=== PATIENT | male | born 1990 | race Caucasian/White ===

== ENCOUNTER 2020-04-26 23:02 | Emergency (ER) | payer OTHER, BC ==
[2020-04-26] MEDS ORDERED: KETOROLAC 30 MG/ML INJ ONE (23:55)
[2020-04-26] MEDS ORDERED: NA CHLORIDE 0.9% 1,000 ML ONE (23:55)
[2020-04-27 00:29] LABS: Hematocrit 45.9 % (39.6-49.0); MPV 8.3 fL (7.6-11.3); RBC Red Blood Cell Count 5.51 M/uL (4.33-5.43)
[2020-04-27 00:31] LABS: Protime INR 0.96
[2020-04-27 01:17] LABS: ALT/SGPT 48 U/L (12-78); AST/SGOT 21 U/L (15-37); Albumin 4.1 g/dL (3.4-5.0); Alkaline Phosphatase 88 U/L (45-117); BUN Blood Urea Nitrogen 14 mg/dL (7-18); Bicarbonate 26 mmol/L (21-32); Bilirubin Direct < 0.1 mg/dL (0-0.2); Bilirubin Total 0.3 mg/dL (0.2-1.0); Glucose Level 101 mg/dL (74-106); Magnesium 2.1 mg/dL (1.8-2.4); NT PRO-BNP 23 pg/mL (<125); Potassium 3.9 mmol/L (3.5-5.1); Sodium Level 139 mmol/L (136-145); Troponin (Emerg Dept Use Only) < 0.02 ng/mL (0.0-0.045)
[2020-04-27 01:20] LABS: Protein, Total 7.4 g/dL (6.4-8.2)
[2020-04-27 01:24] LABS: Urine Blood NEGATIVE (NEG); Urine Glucose NEGATIVE (NEG); Urine Protein NEGATIVE (NEG); Urine Specific Gravity >1.030 (1.005-1.030)
[2020-04-27] MEDS ORDERED: ALBUTEROL 2.5 MG/3 ML NEB SOL ONE (01:37)
--- NOTE | 2020-04-27 01:42 | EDPHYS ---
Physician Documentation [facility] Name: Alonso Franklin Age: 29 yrs Sex: Male : 1990 Arrival Date: 04/26/2020 Time: 23:05 Bed 8 Private MD: ED Physician Heber Mcgee HPI: 04/26 23:35 This 29 yrs old Male presents to ER via Ambulatory with complaints of cp Breathing Difficulty. 23:35 The patient has shortness of breath at rest. cp 23:35 Onset: The symptoms/episode began/occurred today. cp 23:35 Duration: The symptoms are continuous, and are unchanged since they started. The cp patient's shortness of breath is aggravated by deep breaths. Associated signs and symptoms: Pertinent positives: chest pain, Pertinent negatives: diaphoresis, dizziness, fever, hemoptysis. Historical: - Allergies: 23:19 No Known Allergies; rr5 - Home Meds: 23:19 None [Active]; rr5 - PMHx: 23:19 GERD; Diverticulitis; rr5 - PSHx: 23:19 None; rr5 - Immunization history:: Adult Immunizations up to date. - Social history:: Smoking status: unknown Patient uses alcohol, occasionally. ROS: 23:40 Constitutional: Negative for body aches, chills, fever, poor PO intake. cp 23:40 Eyes: Negative for injury, pain, redness, and discharge. cp 23:40 ENT: Negative for ear pain, sore throat, difficulty swallowing, difficulty handling secretions. 23:40 Cardiovascular: Positive for chest pain, Negative for edema, palpitations. 23:40 Respiratory: Positive for shortness of breath, at rest. Negative for wheezing. 23:40 Abdomen/GI: Negative for abdominal pain, nausea, vomiting, and diarrhea. 23:40 Back: Negative for radiated pain. 23:40 Neuro: Negative for altered mental status, dizziness, headache, syncope, weakness. 23:40 All other systems are negative. Exam: 23:22 ECG was reviewed by the Attending Physician. cp 23:45 Constitutional: The patient appears in no acute distress, alert, awake, cp non-diaphoretic, non-toxic, well developed, well nourished. 23:45 Head/Face: Normocephalic, atraumatic. cp 23:45 Eyes: Periorbital structures: appear normal, Conjunctiva: normal, no exudate, no injection, Sclera: no appreciated abnormality, Lids and lashes: appear normal, bilaterally. 23:45 ENT: External ear(s): are unremarkable, Nose: is normal, Mouth: Lips: moist, Oral mucosa: moist, Posterior pharynx: Airway: no evidence of obstruction, patent. 23:45 Chest/axilla: Inspection: normal, Palpation: is normal, no crepitus, no tenderness. 23:45 Cardiovascular: Rate: normal, Rhythm: regular, Heart sounds: murmur, not appreciated. 23:45 Respiratory: the patient does not display signs of respiratory distress, Respirations: normal, no use of accessory muscles, no retractions, labored breathing, is not present, Breath sounds: are clear throughout, no decreased breath sounds, no stridor, no wheezing. 23:45 Abdomen/GI: Inspection: abdomen appears normal, Bowel sounds: active, all quadrants, Palpation: abdomen is soft and non-tender, in all quadrants, rebound tenderness, is not appreciated, voluntary guarding, is not appreciated, involuntary guarding, is not appreciated. 23:45 Skin: no rash present. 23:45 Neuro: Orientation: to person, place \T\ time. Mentation: is normal, Motor: moves all fours, strength is normal. Vital Signs: 23:16 BP 148 / 92; Pulse 77; Resp 19; Temp 98.1; Pulse Ox 99% ; Weight 83.91 kg; Height 5 ft. rr5 9 in. (175.26 cm); Pain 6/10; 04/27 00:00 BP 134 / 83; Pulse 77; Resp 16; Pulse Ox 99% on R/A; lp1 01:53 BP 145 / 77; Pulse 76; Resp 16; Pulse Ox 98% on R/A; lp1 04/26 23:16 Body Mass Index 27.32 (83.91 kg, 175.26 cm) rr5 MDM: 04/26 23:19 Patient medically screened. cp 23:55 Differential diagnosis: asthma, Myocardial Infarction pneumonia, Pneumothorax pulmonary cp edema, Pulmonary Embolism. 04/27 01:40 Data reviewed: vital signs, nurses notes, lab test result(s), EKG, radiologic studies, cp plain films. 01:40 Test interpretation: by ED physician or midlevel provider: ECG, chest xray negative for cp infiltrates. Counseling: I had a detailed discussion with the patient and/or guardian regarding: the historical points, exam findings, and any diagnostic results supporting the discharge/admit diagnosis, lab results, radiology results, to return to the emergency department if symptoms worsen or persist or if there are any questions or concerns that arise at home. Special discussion: Based on the patient's history, exam, and Dx evaluation, there is no indication for emergent intervention or inpatient Tx. It is understood by the patient/guardian that if the Sx's persist or worsen they need to return immediately for re-evaluation. 04/26 23:30 Order name: Basic Metabolic Panel; Complete Time: 01:29 cp 04/27 01:20 Interpretation: Normal except: GFR 80. cp 04/26 23:30 Order name: CBC with Diff; Complete Time: 00:33 cp 04/27 00:33 Interpretation: Normal except: RBC 5.51; BASO% 2.0. cp 04/26 23:30 Order name: LFT's; Complete Time: 01:29 cp 04/27 01:29 Interpretation: Reviewed. cp 04/26 23:30 Order name: Magnesium; Complete Time: 01:29 cp 04/26 23:30 Order name: NT PRO-BNP; Complete Time: 01:29 cp 04/26 23:30 Order name: PT-INR; Complete Time: 00:33 cp 04/26 23:30 Order name: Troponin (emerg Dept Use Only); Complete Time: 01:21 cp 04/27 01:21 Interpretation: Reviewed. cp 04/26 23:30 Order name: XRAY Chest (1 view) cp 04/27 00:34 Order name: UDS; Complete Time: 01:48 cp 04/27 01:03 Order name: SARS-COV-2 RT PCR; Complete Time: 01:16 EDMS 04/27 01:08 Order name: Urine Dipstick--Ancillary (enter results); Complete Time: 01:30 mw2 04/27 01:30 Interpretation: Reviewed. cp 04/26 23:30 Order name: Cardiac monitoring; Complete Time: 23:38 cp 04/26 23:30 Order name: IV Saline Lock; Complete Time: 23:38 cp 04/26 23:30 Order name: Labs collected and sent; Complete Time: 23:38 cp 04/26 23:30 Order name: O2 Per Protocol; Complete Time: 23:38 cp 04/26 23:30 Order name: O2 Sat Monitoring; Complete Time: 23:38 cp 04/27 00:34 Order name: Urine Dipstick-Ancillary (obtain specimen); Complete Time: 01:51 cp EC/02 23:22 Rate is 90 beats/min. Rhythm is regular. SC interval is normal. QRS interval is normal. cp QT interval is normal. T waves are Inverted in lead III. Interpreted by me. Reviewed by me. Administered Medications: 23:47 Drug: TORadol - Ketorolac 15 mg Route: IVP; Site: left antecubital; mg2 04/27 00:15 Follow up: Response: No adverse reaction; Pain is decreased rr5 04/26 23:48 Drug: NS 0.9% 1000 ml Route: IV; Rate: 1 bolus; Site: left antecubital; mg2 04/27 01:51 Follow up: Response: No adverse reaction; IV Status: Completed infusion; IV Intake: rr5 1000ml 01:24 Drug: Albuterol 2.5 mg Route: Inhalation; rr5 01:51 Follow up: Response: No adverse reaction rr5 Disposition: 07:20 Co-signature as Attending Physician, Heber Mcgee MD I agree with the assessment and tw4 plan of care. Disposition: 04/27/20 01:41 Discharged to Home. Impression: Shortness of breath, Other chest pain. - Condition is Stable. - Discharge Instructions: Nonspecific Chest Pain, Shortness of Breath. - Prescriptions for Naprosyn 500 mg Oral Tablet - take 1 tablet by ORAL route 2 times per day take with food; 30 tablet. Albuterol Sulfate 90 mcg/actuation - inhale 1-2 puff by INHALATION route every 4-6 hours; 1 Inhaler. - Medication Reconciliation Form, Thank You Letter, Antibiotic Education, Prescription Opioid Use form. - Follow up: Private Physician; When: 1 - 2 days; Reason: Worsening of condition. - Problem is new. - Symptoms have improved. Signatures: Dispatcher [employer] EDCarolann Haas RN RN lp1 Hernan Moran PA PA cp Wadley, Terrence, MD MD tw4 Chetan Madrigal RN RN mg2 Unger, Kvng, RN RN rr5 Corrections: (The following items were deleted from the chart) 00:14 04/26 23:30 CORONAVIRUS+[email or web address] ordered. [facility] EDMS 04/27 01:54 01:41 04/27/2020 01:41 Discharged to Home. Impression: Shortness of breath; Other chest lp1 pain. Condition is Stable. Forms are Medication Reconciliation Form, Thank You Letter, Antibiotic Education, Prescription Opioid Use. Follow up: Private Physician; When: 1 - 2 days; Reason: Worsening of condition. Problem is new. Symptoms have improved. cp
--- NOTE | 2020-04-27 01:42 | ER ---
Nurse's Notes [facility] Name: Alonso Franklin Age: 29 yrs Sex: Male : 1990 Arrival Date: 04/26/2020 Time: 23:05 Bed 8 Private MD: Diagnosis: Shortness of breath;Other chest pain Presentation: 04/26 23:16 Chief complaint: Patient states: last night around 10 PM I'm having difficulty of rr5 breathing and having chest pain and heaviness when breath in. no fever. Coronavirus screen: Client denies travel out of the [place] in the last 14 days. shortness of breath, Client presents with at least one sign or symptom that may indicate coronavirus-19. Standard/surgical mask placed on the client. Provider contacted for isolation considerations. Ebola Screen: Patient negative for fever greater than or equal to 101.5 degrees Fahrenheit, and additional compatible Ebola Virus Disease symptoms Patient denies exposure to infectious person. Patient denies travel to an Ebola-affected area in the 21 days before illness onset. Initial Sepsis Screen: Does the patient meet any 2 criteria? No. Patient's initial sepsis screen is negative. Does the patient have a suspected source of infection? No. Patient's initial sepsis screen is negative. Risk Assessment: Do you want to hurt yourself or someone else? Patient reports no desire to harm self or others. Onset of symptoms was April 26, 2020. 23:16 Method Of Arrival: Ambulatory rr5 23:16 Acuity: KILEY 3 rr5 Historical: - Allergies: 23:19 No Known Allergies; rr5 - Home Meds: 23:19 None [Active]; rr5 - PMHx: 23:19 GERD; Diverticulitis; rr5 - PSHx: 23:19 None; rr5 - Immunization history:: Adult Immunizations up to date. - Social history:: Smoking status: unknown Patient uses alcohol, occasionally. Screenin:20 Abuse screen: Denies threats or abuse. Denies injuries from another. Nutritional rr5 screening: No deficits noted. Tuberculosis screening: No symptoms or risk factors identified. Fall Risk None identified. Total Erickson Fall Scale indicates No Risk (0-24 pts). Assessment: 23:19 General: Appears in no apparent distress. comfortable, Behavior is calm, cooperative, rr5 appropriate for age. Pain: Complains of pain in chest Pain currently is 6 out of 10 on a pain scale. Quality of pain is described as aching, Pain began gradually, Is intermittent. Neuro: Level of Consciousness is awake, alert, obeys commands, Oriented to person, place, time. Cardiovascular: Reports chest pain, Capillary refill < 3 seconds Patient's skin is warm and dry. Rhythm is regular. Respiratory: Reports shortness of breath Airway is patent Respiratory effort is even, unlabored, Respiratory pattern is regular, symmetrical, GI: No signs and/or symptoms were reported involving the gastrointestinal system. : No signs and/or symptoms were reported regarding the genitourinary system. EENT: No signs and/or symptoms were reported regarding the EENT system. Derm: Skin is intact, is healthy with good turgor, Skin temperature is warm. Musculoskeletal: Circulation, motion, and sensation intact. Capillary refill < 3 seconds. 04/27 01:53 Reassessment: Patient appears in no apparent distress at this time. Patient is alert, lp1 oriented x 3, equal unlabored respirations, skin warm/dry/pink. Patient demonstrates understanding of discharge instructions and medications prescribed Patient states feeling better. Vital Signs: 04/26 23:16 BP 148 / 92; Pulse 77; Resp 19; Temp 98.1; Pulse Ox 99% ; Weight 83.91 kg; Height 5 ft. rr5 9 in. (175.26 cm); Pain 6/10; 04/27 00:00 BP 134 / 83; Pulse 77; Resp 16; Pulse Ox 99% on R/A; lp1 01:53 BP 145 / 77; Pulse 76; Resp 16; Pulse Ox 98% on R/A; lp1 04/26 23:16 Body Mass Index 27.32 (83.91 kg, 175.26 cm) rr5 ED Course: 04/26 23:05 Patient arrived in ED. bp1 23:06 Yesika Monte, RAFFY is Primary Nurse. ll2 23:12 Hernan Moran PA is PHCP. cp 23:12 Heber Mcgee MD is Attending Physician. cp 23:18 Triage completed. rr5 23:19 Arm band placed on right wrist. rr5 23:20 Patient has correct armband on for positive identification. Bed in low position. Call rr5 light in reach. monitor worker on. Pulse ox on. NIBP on. 23:20 No provider procedures requiring assistance completed. EKG done, by ED staff, reviewed rr5 by Heber Mcgee MD. 23:21 Primary Nurse role handed off by Yesika Monte, RN rr5 23:21 Kvng Unger, RN is Primary Nurse. rr5 23:48 Inserted saline lock: 20 gauge in left antecubital area, using aseptic technique. Blood mg2 collected. by LUIS ANTONIO Stokes Tech. 23:49 COVID swab sent to lab. mg2 04/27 00:08 XRAY Chest (1 view) In Process Unspecified. EDMS 01:52 IV discontinued, No redness/swelling at site. Pressure dressing applied. lp1 Administered Medications: 04/26 23:47 Drug: TORadol - Ketorolac 15 mg Route: IVP; Site: left antecubital; mg2 04/27 00:15 Follow up: Response: No adverse reaction; Pain is decreased rr5 04/26 23:48 Drug: NS 0.9% 1000 ml Route: IV; Rate: 1 bolus; Site: left antecubital; mg2 04/27 01:51 Follow up: Response: No adverse reaction; IV Status: Completed infusion; IV Intake: rr5 1000ml 01:24 Drug: Albuterol 2.5 mg Route: Inhalation; rr5 01:51 Follow up: Response: No adverse reaction rr5 Intake: 01:51 IV: 1000ml; Total: 1000ml. rr5 Outcome: 01:41 Discharge ordered by . cp 01:54 Discharged to home ambulatory. lp1 01:54 Condition: good 01:54 Discharge instructions given to patient, Instructed on discharge instructions, follow up and referral plans. medication usage, Demonstrated understanding of instructions, follow-up care, medications, Prescriptions given X 2. 01:54 Patient left the ED. lp1 Signatures: Dispatcher [employer] EDMS Carolann Sauer RN RN lp1 Hernan Moran PA PA cp Gardose, Michele, RN RN mg2 Kvng Unger, RN RN rr5 Yesika Monte, RAFFY RN ll2 Ami Worley bp1
[2020-04-27 01:46] LABS: Barbiturates NEGATIVE (NEGATIVE); Benzodiazepines NEGATIVE (NEGATIVE); Cocaine NEGATIVE (NEGATIVE); METHAMPHETAM NEGATIVE (NEGATIVE); Methadone NEGATIVE (NEGATIVE); Opiates NEGATIVE (NEGATIVE); Phencyclidine NEGATIVE (NEGATIVE); THC Cannibis NEGATIVE (NEGATIVE)
[2020-04-27 02:01] VITALS: TEMP 98.1
[2020-04-27 02:41] VITALS: BP 145/77; O2SAT 98
--- NOTE | 2020-04-27 12:18 | RAD REPORT ---
EXAM DESCRIPTION: RAD - Chest Single View - 04/27/2020 12:06 am CLINICAL HISTORY: Chest pain;SOB Chest pain. COMPARISON: Chest Pa And Lat (2 Views) dated 03/22/2017 FINDINGS: Portable technique limits examination quality. The lungs are grossly clear. The heart is normal in size. No displaced fractures. IMPRESSION: No acute intrathoracic process suspected.
== END 2020-04-27 01:54 | disposition home or self-care (01) ==
LOC: ER 23:02
DX: R07.89 Other chest pain (principal); Z20.822 Contact with and (suspected) exposure to COVID-19
CPT/HCPCS: 96361; 93005; 85025; 80048; 36415; 83735; 85610; 80076; 80307 ×8; 81003; 84484; 83880; 71045; 96374; 99285; U0003; J7030